=== PATIENT | male | born 1950 | race Caucasian/White ===

== ENCOUNTER 2019-09-17 00:11 | Inpatient (IN) ==
[2019-09-17 01:01] LABS: Osmolality,Calculated 278.8 MOS/KG (273-304)
[2019-09-17] MEDS ORDERED: DEXTROSE 50% 25 GM/50 ML VIAL IV STA ×4 (01:10→06:44)
[2019-09-17] MEDS ORDERED: CALCIUM GLUCONATE 1,000 MG in SODIUM CHLORIDE 0.9% 100 ML IV ONE ×2 (01:10→01:30)
[2019-09-17] MEDS ORDERED: DEXTROSE 50% 25 GM/50 ML SYRINGE IV ONE ×4 (01:19→06:57)
[2019-09-17 01:47] LABS: Apearance,Urine Slightly Hazy (Clear); Bilirubin,Urine Negative (Negative); Blood, Urine Moderate mg/dL (Negative); Glucose,Urine (UA) Negative (Negative); Ketones,Urine Negative (Negative); Mucus,Urine Occasional /LPF (Occasional); Nitrite,Urine Negative (Negative); Protein,Urine Negative; RBC,Urine 9 /HPF (0-4); Squamous Epithelial Cell,Urine Occasional /HPF (0-10); Urine Color Straw (Yellow); Urine Specific Gravity 1.008 (1.001-1.035); Urine Urobilinogen < 2.0 EU/DL (0.2-1.0); WBC,Urine 115 /HPF (0-6)
[2019-09-17] MEDS ORDERED: cefTRIAXone 1,000 MG in SODIUM CHLORIDE 0.9% 100 ML IV STA (01:51)
[2019-09-17 02:28] LABS: Basophils % 0.2 % (0.0-0.8); Eosinophils # 0.3 10*3/uL (0.0-0.87); Eosinophils % 1.6 % (0.00-10.9); Hematocrit 27.7 VOL% (42.0-52.0); Hemoglobin 8.3 GM/DL (14.0-18.0); Immature Granulocytes % 0.8 %; Immature Granulocytes Absolute 0.13 #; Lymphocytes # 0.9 10*3/uL (1.4-4.0); Lymphocytes % 5.2 % (21.2-54.2); Mean Corpuscular Volume 87.4 FL (87-102); Mean Platelet Volume 9.1 FL (9.6-12.0); Monocytes % 3.8 % (1.7-12.7); Neutrophils % 88.4 % (38.7-73.9); Platelet Count 371 T/CUMM (130-400); Red Blood Count 3.17 MC/CUMM (3.8-5.5); Red Cell Distribution Width 17.8 % (9.3-17.3); White Blood Count 16.8 T/CUMM (4-12)
[2019-09-17] MEDS: ENOXAPARIN 40 MG/0.4 ML SYRINGE SUBCUT SCH (04:03)
[2019-09-17] MEDS: INSULIN REGULAR 100 UNIT/ML SUBCUT SCH ×4 (07:31→21:35)
[2019-09-17] MEDS: DEXTROSE 5% NACL 0.45% 1,000 ML IV SCH ×2 (07:32→16:00)
[2019-09-17] MEDS ORDERED: DEXTROSE 10% 250 ML IV ONE (08:17)
[2019-09-17] MEDS ORDERED: oxyCODONE/ACETAMINOPHEN 5-325 MG TABLET PO PRN (08:42)
[2019-09-17] MEDS ORDERED: PROMETHAZINE 25 MG TABLET PO PRN (08:42)
[2019-09-17] MEDS ORDERED: hydrOXYzine HCL 25 MG TABLET PO PRN (08:42)
[2019-09-17 08:47] LABS: Basophils % 0.1 % (0.0-0.8); Eosinophils # 0.5 10*3/uL (0.0-0.87); Eosinophils % 3.7 % (0.00-10.9); Hematocrit 25.5 VOL% (42.0-52.0); Hemoglobin 8.1 GM/DL (14.0-18.0); Immature Granulocytes % 0.8 %; Immature Granulocytes Absolute 0.11 #; Lymphocytes # 1.3 10*3/uL (1.4-4.0); Lymphocytes % 9.9 % (21.2-54.2); Mean Corpuscular HGB Conc 31.8 GM/DL (32-36); Mean Corpuscular Volume 84.7 FL (87-102); Mean Platelet Volume 8.7 FL (9.6-12.0); Monocytes % 4.4 % (1.7-12.7); Neutrophils % 81.1 % (38.7-73.9); Platelet Count 345 T/CUMM (130-400); Red Blood Count 3.01 MC/CUMM (3.8-5.5); Red Cell Distribution Width 17.7 % (9.3-17.3); White Blood Count 13.4 T/CUMM (4-12)
[2019-09-17] MEDS ORDERED: ALBUTEROL 2.5 MG/3 ML NEB RESP TX SCH (09:00)
[2019-09-17 09:09] LABS: Albumin 2.4 G/DL (3.4-5.0); Bilirubin,Total 0.5 MG/DL (0.2-1.0); Osmolality,Calculated 281.5 MOS/KG (273-304); Total Protein 7.2 G/DL (6.4-8.3)
[2019-09-17 09:11] LABS: Calcium 5.7 MG/DL (8.5-10.1)
[2019-09-17] MEDS ORDERED: methylPREDNISolone SOD SUC 40 MG/1 ML VIAL IV ONE (09:19)
[2019-09-17 10:10] LABS: Parathyroid Hormone Intact 90.7 PG/ML (18.4-80.1)
[2019-09-17] MEDS: BRIMONIDINE 0.1% OPH SOLN 5 ML BOTTLE BOTH EYES SCH ×2 (10:25→21:36)
[2019-09-17] MEDS: FINASTERIDE 5 MG TABLET PO SCH (10:26)
[2019-09-17] MEDS: GABAPENTIN 600 MG TABLET PO SCH ×3 (10:26→21:35)
[2019-09-17] MEDS: PANTOPRAZOLE 40 MG TABLET PO SCH (10:26)
[2019-09-17] MEDS: DILTIAZEM CD 300 MG CAPSULE PO SCH (10:26)
[2019-09-17] MEDS: predniSONE 10 MG TABLET PO SCH ×2 (10:26→21:35)
[2019-09-17] MEDS: TAMSULOSIN 0.4 MG CAPSULE PO SCH (10:26)
[2019-09-17] MEDS: MONTELUKAST 10 MG TABLET PO SCH (10:27)
[2019-09-17] MEDS ORDERED: DEXTROSE 10% 1,000 ML IV SCH (10:30)
[2019-09-17] MEDS ORDERED: ALBUTEROL 2.5 MG/3 ML NEB RESP TX ONE (12:00)
[2019-09-17] MEDS: ALBUTEROL 2.5 MG/3 ML NEB RESP TX SCH ×2 (12:30→19:32)
[2019-09-17] MEDS: BIMATOPROST 0.01% OPH SOLN 2.5 ML BOTTLE BOTH EYES SCH (21:35)
[2019-09-17] MEDS: SODIUM CHLORIDE 0.9% 1,000 ML IV SCH (23:38)
[2019-09-17] MEDS: cefTRIAXone 1,000 MG in SYRINGE 1 EACH IV SCH (23:39)
[2019-09-18] MEDS: ALBUTEROL 2.5 MG/3 ML NEB RESP TX SCH ×4 (00:45→20:28)
[2019-09-18] MEDS: ENOXAPARIN 40 MG/0.4 ML SYRINGE SUBCUT SCH (02:54)
[2019-09-18 06:08] LABS: Basophils % 0.1 % (0.0-0.8); Hematocrit 24.7 VOL% (42.0-52.0); Hemoglobin 7.7 GM/DL (14.0-18.0); Immature Granulocytes Absolute 0.11 #; Lymphocytes # 0.4 10*3/uL (1.4-4.0); Lymphocytes % 3.2 % (21.2-54.2); Mean Corpuscular HGB Conc 31.2 GM/DL (32-36); Mean Corpuscular Volume 85.2 FL (87-102); Mean Platelet Volume 9.1 FL (9.6-12.0); Monocytes % 4.2 % (1.7-12.7); Neutrophils % 91.5 % (38.7-73.9); Platelet Count 317 T/CUMM (130-400); Red Cell Distribution Width 17.5 % (9.3-17.3); White Blood Count 11.1 T/CUMM (4-12)
[2019-09-18 06:29] LABS: Band Neutrophils 1 % (0-10); Hypochromasia 1+; Lymphocytes 4 % (20-55); Microcytosis 1+; Polychromasia Slight; Segmented Neutrophils 92 % (50-85); Total Cells Counted 100
[2019-09-18 06:30] LABS: Platelet Estimate Normal
[2019-09-18 06:33] LABS: Albumin 2.4 G/DL (3.4-5.0)
[2019-09-18 06:45] LABS: Calcium 5.7 MG/DL (8.5-10.1)
[2019-09-18 07:33] LABS: Calcium 5.7 MG/DL (8.5-10.1)
[2019-09-18] MEDS ORDERED: SODIUM CHLORIDE 0.9% 1,000 ML IV PRN (07:33)
[2019-09-18] MEDS ORDERED: CALCIUM GLUCONATE 2,000 MG in SODIUM CHLORIDE 0.9% 100 ML IV ONE (08:00)
[2019-09-18] MEDS ORDERED: ERGOCALCIFEROL 50,000 UNIT CAPSULE PO SCH (09:00)
[2019-09-18] MEDS ORDERED: GLUCAGON 1 MG VIAL IM PRN (09:10)
[2019-09-18] MEDS ORDERED: DEXTROSE 50% 25 GM/50 ML VIAL IV PRN (09:10)
[2019-09-18] MEDS: GABAPENTIN 600 MG TABLET PO SCH ×3 (09:24→22:35)
[2019-09-18] MEDS: predniSONE 10 MG TABLET PO SCH ×2 (09:25→22:36)
[2019-09-18] MEDS: DILTIAZEM CD 300 MG CAPSULE PO SCH (09:25)
[2019-09-18] MEDS: MONTELUKAST 10 MG TABLET PO SCH (09:27)
[2019-09-18] MEDS: INSULIN REGULAR 100 UNIT/ML SUBCUT SCH ×4 (09:45→22:41)
[2019-09-18] MEDS: FINASTERIDE 5 MG TABLET PO SCH (09:47)
[2019-09-18] MEDS: POLYETHYLENE GLYCOL POWDER 17 GM PACK PO SCH (09:47)
[2019-09-18] MEDS: TAMSULOSIN 0.4 MG CAPSULE PO SCH (09:47)
[2019-09-18] MEDS: PANTOPRAZOLE 40 MG TABLET PO SCH (09:48)
[2019-09-18] MEDS: BRIMONIDINE 0.1% OPH SOLN 5 ML BOTTLE BOTH EYES SCH ×2 (09:51→23:41)
[2019-09-18] MEDS: DIGOXIN 0.25 MG TABLET PO SCH (12:31)
[2019-09-18] MEDS: SODIUM CHLORIDE 0.9% 1,000 ML IV SCH (15:26)
[2019-09-18] MEDS: cefTRIAXone 1,000 MG in SYRINGE 1 EACH IV SCH (22:35)
[2019-09-18] MEDS: BIMATOPROST 0.01% OPH SOLN 2.5 ML BOTTLE BOTH EYES SCH (23:40)
[2019-09-19] MEDS: ALBUTEROL 2.5 MG/3 ML NEB RESP TX SCH (01:54)
[2019-09-19] MEDS: SODIUM CHLORIDE 0.9% 1,000 ML IV SCH (04:35)
[2019-09-19 05:36] LABS: Basophils % 0.2 % (0.0-0.8); Eosinophils # 0.1 10*3/uL (0.0-0.87); Eosinophils % 0.7 % (0.00-10.9); Hematocrit 29.6 VOL% (42.0-52.0); Hemoglobin 9.2 GM/DL (14.0-18.0); Immature Granulocytes % 0.8 %; Lymphocytes # 0.7 10*3/uL (1.4-4.0); Lymphocytes % 5.8 % (21.2-54.2); Mean Corpuscular HGB Conc 31.1 GM/DL (32-36); Mean Platelet Volume 8.9 FL (9.6-12.0); Monocytes % 4.7 % (1.7-12.7); Neutrophils % 87.8 % (38.7-73.9); Platelet Count 332 T/CUMM (130-400); Red Blood Count 3.44 MC/CUMM (3.8-5.5); Red Cell Distribution Width 17.3 % (9.3-17.3); White Blood Count 12.5 T/CUMM (4-12)
[2019-09-19 05:53] LABS: Calcium 6.3 MG/DL (8.5-10.1); Osmolality,Calculated 286.7 MOS/KG (273-304)
[2019-09-19] MEDS: ALBUTEROL 2.5 MG/3 ML NEB RESP TX PRN ×3 (07:21→18:20)
[2019-09-19] MEDS ORDERED: Dapagliflozin [Farxiga] 10 MG PO SCH (09:00)
[2019-09-19] MEDS: INSULIN REGULAR 100 UNIT/ML SUBCUT SCH ×4 (10:02→21:41)
[2019-09-19] MEDS: BRIMONIDINE 0.1% OPH SOLN 5 ML BOTTLE BOTH EYES SCH ×2 (10:02→21:42)
[2019-09-19] MEDS: DILTIAZEM CD 300 MG CAPSULE PO SCH (10:04)
[2019-09-19] MEDS: DIGOXIN 0.25 MG TABLET PO SCH (10:05)
[2019-09-19] MEDS: predniSONE 10 MG TABLET PO SCH ×2 (10:05→21:42)
[2019-09-19] MEDS: GABAPENTIN 600 MG TABLET PO SCH ×3 (10:05→21:41)
[2019-09-19] MEDS: CALCIUM CARBONATE CHEW 500 MG TABLET PO SCH ×2 (10:06→21:41)
[2019-09-19] MEDS: FINASTERIDE 5 MG TABLET PO SCH (10:06)
[2019-09-19] MEDS: TAMSULOSIN 0.4 MG CAPSULE PO SCH (10:06)
[2019-09-19] MEDS: PANTOPRAZOLE 40 MG TABLET PO SCH (10:06)
[2019-09-19] MEDS: MONTELUKAST 10 MG TABLET PO SCH (10:06)
[2019-09-19] MEDS: POLYETHYLENE GLYCOL POWDER 17 GM PACK PO SCH (10:07)
[2019-09-19] MEDS ORDERED: CYCLOBENZAPRINE 10 MG TABLET PO PRN (10:47)
[2019-09-19] MEDS: DABIGATRAN 150 MG CAPSULE PO SCH ×2 (11:29→21:40)
[2019-09-19] MEDS: BIMATOPROST 0.01% OPH SOLN 2.5 ML BOTTLE BOTH EYES SCH (21:40)
[2019-09-19] MEDS: cefTRIAXone 1,000 MG in SYRINGE 1 EACH IV SCH (22:27)
[2019-09-20] MEDS: ALBUTEROL 2.5 MG/3 ML NEB RESP TX PRN ×2 (02:29→07:30)
[2019-09-20] MEDS: ALBUTEROL 2.5 MG/3 ML NEB RESP TX SCH (03:29)
[2019-09-20 05:34] LABS: Basophils % 0.2 % (0.0-0.8); Eosinophils # 0.4 10*3/uL (0.0-0.87); Eosinophils % 3.6 % (0.00-10.9); Hematocrit 30.6 VOL% (42.0-52.0); Hemoglobin 9.4 GM/DL (14.0-18.0); Immature Granulocytes % 0.9 %; Immature Granulocytes Absolute 0.11 #; Lymphocytes # 0.8 10*3/uL (1.4-4.0); Lymphocytes % 6.7 % (21.2-54.2); Mean Corpuscular HGB Conc 30.7 GM/DL (32-36); Mean Corpuscular Volume 86.4 FL (87-102); Mean Platelet Volume 8.6 FL (9.6-12.0); Monocytes % 5.1 % (1.7-12.7); Neutrophils % 83.5 % (38.7-73.9); Platelet Count 333 T/CUMM (130-400); Red Blood Count 3.54 MC/CUMM (3.8-5.5); Red Cell Distribution Width 17.2 % (9.3-17.3)
[2019-09-20 06:13] LABS: Albumin 2.5 G/DL (3.4-5.0); Calcium 6.4 MG/DL (8.5-10.1); Osmolality,Calculated 283.7 MOS/KG (273-304)
[2019-09-20] MEDS: INSULIN REGULAR 100 UNIT/ML SUBCUT SCH ×3 (08:31→16:51)
[2019-09-20] MEDS: BRIMONIDINE 0.1% OPH SOLN 5 ML BOTTLE BOTH EYES SCH (08:31)
[2019-09-20] MEDS: CALCIUM CARBONATE CHEW 500 MG TABLET PO SCH ×2 (08:32→08:43)
[2019-09-20] MEDS: MONTELUKAST 10 MG TABLET PO SCH (08:32)
[2019-09-20] MEDS: GABAPENTIN 600 MG TABLET PO SCH ×2 (08:32→16:04)
[2019-09-20] MEDS: DABIGATRAN 150 MG CAPSULE PO SCH (08:33)
[2019-09-20] MEDS: DILTIAZEM CD 300 MG CAPSULE PO SCH (08:33)
[2019-09-20] MEDS: PANTOPRAZOLE 40 MG TABLET PO SCH (08:33)
[2019-09-20] MEDS: TAMSULOSIN 0.4 MG CAPSULE PO SCH (08:33)
[2019-09-20] MEDS: predniSONE 10 MG TABLET PO SCH (08:33)
[2019-09-20] MEDS: FINASTERIDE 5 MG TABLET PO SCH (08:33)
[2019-09-20] MEDS: DIGOXIN 0.25 MG TABLET PO SCH (08:41)
[2019-09-20] MEDS: POLYETHYLENE GLYCOL POWDER 17 GM PACK PO SCH (08:41)
[2019-09-20 12:17] VITALS: BP 140/60
[2019-09-20] MEDS ORDERED: BACITRACIN OINT 0.9 GM PACK TOP SCH (12:30)
== END 2019-09-20 17:51 | disposition swing bed (61) | DRG 638 ==
LOC: EDUNIT# → EDBD → N.EDINP 00:11 → N.ED 00:11 → SUATTDRO 02:54 → N.3E 14:12
PROVIDERS: ADMIT Family Medicine; ATTEND Internal Medicine

== ENCOUNTER 2020-04-07 20:29 | Inpatient (IN) ==
[2020-04-07 21:02] LABS: Basophils % 0.2 % (0.0-0.8); Eosinophils # 0.4 10*3/uL (0.0-0.87); Eosinophils % 1.8 % (0.00-10.9); Hematocrit 35.7 VOL% (42.0-52.0); Hemoglobin 11.2 GM/DL (14.0-18.0); Immature Granulocytes % 0.8 %; Immature Granulocytes Absolute 0.17 #; Lymphocytes # 0.5 10*3/uL (1.4-4.0); Lymphocytes % 2.1 % (21.2-54.2); Mean Corpuscular HGB Conc 31.4 GM/DL (32-36); Mean Corpuscular Volume 82.8 FL (87-102); Mean Platelet Volume 9.1 FL (9.6-12.0); Monocytes % 2.7 % (1.7-12.7); Neutrophils % 92.4 % (38.7-73.9); Platelet Count 213 T/CUMM (130-400); Red Blood Count 4.31 MC/CUMM (3.8-5.5); Red Cell Distribution Width 15.9 % (9.3-17.3); White Blood Count 21.6 T/CUMM (4-12)
[2020-04-07 21:08] LABS: Band Neutrophils 1 % (0-10); Eosinophils 2 % (0-10); Lymphocytes 2 % (20-55); Segmented Neutrophils 91 % (50-85); Total Cells Counted 100
[2020-04-07 21:09] LABS: Microcytosis 1+; Stomatocytes 2+
[2020-04-07 21:10] LABS: INR 1.3; Platelet Estimate Normal
[2020-04-07 21:14] LABS: Albumin 2.4 G/DL (3.4-5.0); Bilirubin,Total 0.8 MG/DL (0.2-1.0); Osmolality,Calculated 288.1 MOS/KG (273-304); Potassium 3.5 MMOL/L (3.5-5.1); Total Protein 6.8 G/DL (6.4-8.3)
[2020-04-07 21:18] LABS: Calcium 5.7 MG/DL (8.5-10.1)
[2020-04-07] MEDS ORDERED: CALCIUM CHLORIDE 1,000 MG/10 ML SYRINGE IV STA (21:25)
[2020-04-07] MEDS ORDERED: VANCOMYCIN INJ 1,000 MG in SODIUM CHLORIDE 0.9% 250 ML IV STA (21:40)
[2020-04-07] MEDS ORDERED: GLUCAGON 1 MG VIAL IM PRN (21:51)
[2020-04-07] MEDS ORDERED: ONDANSETRON 4 MG/2 ML VIAL IV PRN (21:51)
[2020-04-07] MEDS ORDERED: DEXTROSE 50% 25 GM/50 ML VIAL IV PRN (21:51)
[2020-04-07] MEDS ORDERED: ACETAMINOPHEN 325 MG TABLET PO PRN (21:51)
[2020-04-07] MEDS ORDERED: hydrOXYzine HCL 25 MG TABLET PO PRN (22:11)
[2020-04-07] MEDS ORDERED: LORazepam 1 MG TABLET PO PRN (22:11)
[2020-04-08 04:56] LABS: Basophils % 0.1 % (0.0-0.8); Eosinophils # 0.3 10*3/uL (0.0-0.87); Eosinophils % 1.5 % (0.00-10.9); Hematocrit 32.7 VOL% (42.0-52.0); Hemoglobin 10.2 GM/DL (14.0-18.0); Immature Granulocytes % 0.8 %; Immature Granulocytes Absolute 0.18 #; Lymphocytes # 0.8 10*3/uL (1.4-4.0); Lymphocytes % 3.5 % (21.2-54.2); Mean Corpuscular HGB Conc 31.2 GM/DL (32-36); Mean Corpuscular Volume 83.6 FL (87-102); Mean Platelet Volume 9.5 FL (9.6-12.0); Monocytes % 3.7 % (1.7-12.7); Neutrophils % 90.4 % (38.7-73.9); Platelet Count 212 T/CUMM (130-400); Red Blood Count 3.91 MC/CUMM (3.8-5.5); Red Cell Distribution Width 15.9 % (9.3-17.3)
[2020-04-08 05:09] LABS: Calcium 6.1 MG/DL (8.5-10.1); Osmolality,Calculated 297.7 MOS/KG (273-304); Potassium 3.5 MMOL/L (3.5-5.1)
[2020-04-08 05:28] LABS: Band Neutrophils 2 % (0-10); Eosinophils 2 % (0-10); Lymphocytes 2 % (20-55); Platelet Estimate Normal; Segmented Neutrophils 90 % (50-85); Total Cells Counted 100
[2020-04-08] MEDS: INSULIN LISPRO 100 UNIT/ML SUBCUT SCH ×4 (08:07→20:59)
[2020-04-08] MEDS: PANTOPRAZOLE 40 MG TABLET PO SCH (09:45)
[2020-04-08] MEDS: BRIMONIDINE 0.1% OPH SOLN 5 ML BOTTLE BOTH EYES SCH ×2 (09:45→20:58)
[2020-04-08] MEDS: DILTIAZEM CD 300 MG CAPSULE PO SCH (09:45)
[2020-04-08] MEDS: FUROSEMIDE 40 MG/4 ML VIAL IV SCH ×2 (09:45→17:18)
[2020-04-08] MEDS: TAMSULOSIN 0.4 MG CAPSULE PO SCH (09:46)
[2020-04-08] MEDS: MONTELUKAST 10 MG TABLET PO SCH (09:46)
[2020-04-08] MEDS: DABIGATRAN 150 MG CAPSULE PO SCH ×2 (11:51→20:58)
[2020-04-08] MEDS: VANCOMYCIN INJ 2,000 MG in SODIUM CHLORIDE 0.9% 500 ML IV SCH (11:51)
[2020-04-08] MEDS: ALBUTEROL/IPRATROPIUM 3 ML NEB RESP TX PRN (14:21)
[2020-04-08] MEDS: BIMATOPROST 0.01% OPH SOLN 2.5 ML BOTTLE BOTH EYES SCH (20:58)
[2020-04-08] MEDS: GABAPENTIN 600 MG TABLET PO SCH (21:53)
[2020-04-08] MEDS ORDERED: GABAPENTIN 600 MG TABLET PO SCH (22:00)
[2020-04-09 05:56] LABS: Basophils % 0.1 % (0.0-0.8); Eosinophils # 0.4 10*3/uL (0.0-0.87); Eosinophils % 2.9 % (0.00-10.9); Hematocrit 33.1 VOL% (42.0-52.0); Hemoglobin 10.2 GM/DL (14.0-18.0); Immature Granulocytes % 0.9 %; Immature Granulocytes Absolute 0.11 #; Lymphocytes # 0.8 10*3/uL (1.4-4.0); Lymphocytes % 6.3 % (21.2-54.2); Mean Corpuscular HGB Conc 30.8 GM/DL (32-36); Mean Corpuscular Volume 84.7 FL (87-102); Mean Platelet Volume 9.5 FL (9.6-12.0); Monocytes % 4.7 % (1.7-12.7); Neutrophils % 85.1 % (38.7-73.9); Platelet Count 191 T/CUMM (130-400); Red Blood Count 3.91 MC/CUMM (3.8-5.5); Red Cell Distribution Width 15.9 % (9.3-17.3); White Blood Count 12.7 T/CUMM (4-12)
[2020-04-09 06:16] LABS: Calcium 6.2 MG/DL (8.5-10.1); Osmolality,Calculated 301.4 MOS/KG (273-304); Potassium 3.3 MMOL/L (3.5-5.1)
[2020-04-09] MEDS: DILTIAZEM CD 300 MG CAPSULE PO SCH (09:03)
[2020-04-09] MEDS: INSULIN LISPRO 100 UNIT/ML SUBCUT SCH ×4 (09:03→20:17)
[2020-04-09] MEDS: FUROSEMIDE 40 MG/4 ML VIAL IV SCH ×2 (09:03→17:21)
[2020-04-09] MEDS: MONTELUKAST 10 MG TABLET PO SCH (09:03)
[2020-04-09] MEDS: TAMSULOSIN 0.4 MG CAPSULE PO SCH (09:04)
[2020-04-09] MEDS: BRIMONIDINE 0.1% OPH SOLN 5 ML BOTTLE BOTH EYES SCH ×2 (09:04→20:17)
[2020-04-09] MEDS: POTASSIUM CHLORIDE 20 MEQ TABLET PO PRN ×2 (09:04→12:32)
[2020-04-09] MEDS: PANTOPRAZOLE 40 MG TABLET PO SCH (09:04)
[2020-04-09] MEDS: GABAPENTIN 600 MG TABLET PO SCH ×2 (09:04→20:17)
[2020-04-09] MEDS: DABIGATRAN 150 MG CAPSULE PO SCH ×2 (09:04→20:17)
[2020-04-09] MEDS: CALCIUM CARBONATE CHEW 500 MG TABLET PO PRN (12:32)
[2020-04-09] MEDS: VANCOMYCIN INJ 2,000 MG in SODIUM CHLORIDE 0.9% 500 ML IV SCH (12:32)
[2020-04-09] MEDS: ALBUTEROL/IPRATROPIUM 3 ML NEB RESP TX PRN (13:20)
[2020-04-09] MEDS ORDERED: FLUCONAZOLE 200 MG TABLET PO ONE (15:05)
[2020-04-09] MEDS: BIMATOPROST 0.01% OPH SOLN 2.5 ML BOTTLE BOTH EYES SCH (20:17)
[2020-04-10 07:01] LABS: Basophils % 0.1 % (0.0-0.8); Eosinophils # 0.4 10*3/uL (0.0-0.87); Eosinophils % 3.9 % (0.00-10.9); Hematocrit 32.1 VOL% (42.0-52.0); Hemoglobin 9.5 GM/DL (14.0-18.0); Immature Granulocytes % 0.6 %; Immature Granulocytes Absolute 0.06 #; Mean Corpuscular HGB Conc 29.6 GM/DL (32-36); Mean Corpuscular Volume 85.8 FL (87-102); Mean Platelet Volume 9.6 FL (9.6-12.0); Neutrophils % 80.4 % (38.7-73.9); Platelet Count 216 T/CUMM (130-400); Red Blood Count 3.74 MC/CUMM (3.8-5.5); Red Cell Distribution Width 15.9 % (9.3-17.3); White Blood Count 10.2 T/CUMM (4-12)
[2020-04-10 07:23] LABS: Calcium 6.3 MG/DL (8.5-10.1); Osmolality,Calculated 292.4 MOS/KG (273-304); Potassium 3.4 MMOL/L (3.5-5.1)
[2020-04-10] MEDS: ALBUTEROL/IPRATROPIUM 3 ML NEB RESP TX PRN (07:30)
[2020-04-10] MEDS ORDERED: FLUCONAZOLE 100 MG TABLET PO ONE (07:36)
[2020-04-10] MEDS: DILTIAZEM CD 300 MG CAPSULE PO SCH (09:42)
[2020-04-10] MEDS: MONTELUKAST 10 MG TABLET PO SCH (09:42)
[2020-04-10] MEDS: FUROSEMIDE 40 MG/4 ML VIAL IV SCH (09:42)
[2020-04-10] MEDS: DABIGATRAN 150 MG CAPSULE PO SCH (09:43)
[2020-04-10] MEDS: PANTOPRAZOLE 40 MG TABLET PO SCH (09:43)
[2020-04-10] MEDS: POTASSIUM CHLORIDE 20 MEQ TABLET PO PRN (09:43)
[2020-04-10] MEDS: TAMSULOSIN 0.4 MG CAPSULE PO SCH (09:43)
[2020-04-10] MEDS: GABAPENTIN 600 MG TABLET PO SCH (09:43)
[2020-04-10] MEDS: CALCIUM CARBONATE CHEW 500 MG TABLET PO PRN (09:44)
[2020-04-10] MEDS: VANCOMYCIN INJ 2,000 MG in SODIUM CHLORIDE 0.9% 500 ML IV SCH (11:07)
[2020-04-10 11:13] VITALS: BP 127/51
[2020-04-10] MEDS: BRIMONIDINE 0.1% OPH SOLN 5 ML BOTTLE BOTH EYES SCH (11:28)
[2020-04-10] MEDS: INSULIN LISPRO 100 UNIT/ML SUBCUT SCH ×2 (11:28→11:53)
== END 2020-04-10 14:01 | disposition hospice, home (50) | DRG 603 ==
LOC: EDUNIT# → EDBD → N.ED 20:29 → N.EDINP 21:51 → N.3E 04-08 08:25
PROVIDERS: ADMIT Internal Medicine Geriatric Medicine; ATTEND Internal Medicine Geriatric Medicine